=== PATIENT | male | born 1995 | race Caucasian/White ===

== ENCOUNTER 2017-11-04 01:52 | Emergency (ER) | payer SELFPAY ==
[~2017-11-04] VITALS: Ht 152.4 cm; Wt 73.0 kg
[2017-11-04] MEDS ORDERED: LIDOCAINE HCL 1% 20ML VIAL (Pyxis) INJ MC ONE (07:00)
[2017-11-04] MEDS ORDERED: ACETAMINOPHEN 500MG TABLET PO ONE (08:15)
[2017-11-04] MEDS ORDERED: TETANUS, DIPHTHERIA, PERTUSSIS VAC/PF 0.5ML (>7YR OLD) IM ONE (08:15)
[2017-11-04 09:16] VITALS: BP 123/68
== END 2017-11-04 09:17 | disposition home or self-care (01) ==
LOC: ER 02:07
DX: S61.012A Laceration without foreign body of left thumb without damage to nail, initial encounter (principal); W26.0XXA Contact with knife, initial encounter; Y93.89 Activity, other specified; Y92.89 Other specified places as the place of occurrence of the external cause; Y99.8 Other external cause status
CPT/HCPCS: 12001; 90471; 90715; 99283; A4217; J3490; Z7610